=== PATIENT | female | born 1995 | race African-American/Black ===

== ENCOUNTER 2016-04-15 20:39 | Emergency (ER) | payer OTHER ==
[~2016-04-15] VITALS: Ht 157.5 cm; Wt 120.0 kg
[~2016-04-15 20:39] MED LIST: ACET-1256 PO; FERR1TAB13 PO; PSEU30TA20 PO
[2016-04-15 20:50] VITALS: TEMP 37.4
--- NOTE | 2016-04-15 21:29 | EMERGENCY ROOM VISIT NOTE ---
History Report prepared by Keri: Jennifer Romero Under the Supervision of: Dr. Sergo Sousa M.D. First contact with patient: 21:11 Chief Complaint: VAGINAL BLEEDING Stated Complaint: PELVIC PAIN History of Present Illness The patient is a 20 year old female who presents to the Emergency Room with complaints of constant vaginal bleeding that started 3 days ago. The patient states that her last normal menstrual period was 2 weeks ago. She states that she knows that this is not her menstrual period because she is not experiencing any abdominal cramping. The patient denies any abdominal pain. She is experiencing enough vaginal bleeding to have to change her pad twice a day. She states that she is also experiencing fatigue. The patient is not on control and she denies being sexually active recently. She also denies any chance of . Source of History: patient Onset: 3 days ago Position: other (vagina) Quality: other (vaginal bleeding) Timing: constant Associated Symptoms: + fatigue, No abdominal pain Review of Systems See HPI for pertinent positives & negatives. A total of 10 systems reviewed and were otherwise negative. Past Medical & Surgical Medical Problems: (1) Anemia (2) Iron deficiency anemia (3) Rectal bleed (4) Thalassemia Surgical Problems: (1) No significant past surgical history Family History Hypertension Social History Smoking Status: Never Smoker Alcohol Use: none Drug Use: none Marital Status: single Occupation Status: [employer] student Current/Historical Medications No Active Prescriptions or Reported Meds Allergies Coded Allergies: No Known Allergies (Verified , 04/15/16) Physical Exam Vital Signs Date Time Temp Pulse Resp B/P Pulse Ox O2 Delivery O2 Flow Rate FiO2 04/16/16 00:20 89 20 123/81 96 Room Air 04/15/16 23:10 100 20 107/88 100 Room Air 04/15/16 21:47 96 Room Air 04/15/16 20:50 37.4 111 20 122/79 100 Room Air Physical Exam GENERAL: Patient is a healthy-appearing well-nourished female. HEAD: Normocephalic atraumatic EYES: Ocular movements intact pupils equal and react to light OROPHARYNX mucous membranes are moist no exudates present no erythema or edema present NECK: Supple no nuchal rigidity CHEST: Good equal expansion LUNGS: Clear and equal to auscultation CARDIAC: Normal S1 and S2 ABDOMEN: Soft nontender no guarding BACK: No CVA tenderness EXTREMITIES: No pain upon palpation normal muscle strength in all groups no clubbing cyanosis or edema NEURO: Patient is following commands is answering questions appropriately. Alert and oriented x3 Cranial Nerves 2-12 grossly intact Medical Decision & Procedures ER Provider Diagnostic Interpretation: US results as stated below per my review and radiologist interpretation: EXAMINATION: PELVIC ULTRASOUND IMPRESSION: 1. 1.3 cm right ovarian follicular cyst. 2. Study is otherwise negative Electronically signed by: Renzo Richardson M.D. 04/15/2016 10:53 PM Dictated Date/Time: 04/15/2016 10:51 PM Laboratory Results 04/15/16 23:07 Red Blood Count 5.37, Mean Corpuscular Volume 63.5, Mean Corpuscular Hemoglobin 19.2, Mean Corpuscular Hemoglobin Concent 30.2, Mean Platelet Volume 9.5, Neutrophils (%) (Auto) 59.4, Lymphocytes (%) (Auto) 29.1, Monocytes (%) (Auto) 8.6, Eosinophils (%) (Auto) 2.6, Basophils (%) (Auto) 0.0, Neutrophils # (Auto) 4.17, Lymphocytes # (Auto) 2.04, Monocytes # (Auto) 0.60, Eosinophils # (Auto) 0.18, Basophils # (Auto) 0.00 04/15/16 23:07 Test 04/15/16 21:50 04/15/16 23:07 Urine Color ORANGE Urine Appearance TURBID (CLEAR) Urine pH 5.0 (4.5-7.5) Urine Specific [place] 1.030 (1.000-1.030) Urine Protein NEG (NEG) Urine Glucose (UA) NEG (NEG) Urine Ketones TRACE (NEG) Urine Occult Blood 1+ (NEG) Urine Nitrite POS (NEG) Urine Bilirubin NEG (NEG) Urine Urobilinogen NEG (NEG) Urine Leukocyte Esterase TRACE (NEG) Urine WBC (Auto) 1-5 /hpf (0-5) Urine RBC (Auto) 0-4 /hpf (0-4) Urine Hyaline Casts (Auto) 1-5 /lpf (0-5) Urine Epithelial Cells (Auto) >30 /lpf (0-5) Urine Bacteria (Auto) 1+ (NEG) Urine Crystals CALCIUM OXALATE (NONE Urine Test NEG (NEG) White Blood Count 7.01 K/uL (4.8-10.8) Red Blood Count 5.37 M/uL (4.2-5.4) Hemoglobin 10.3 g/dL (12.0-16.0) Hematocrit 34.1 % (37-47) Mean Corpuscular Volume 63.5 fL (80-100) Mean Corpuscular Hemoglobin 19.2 pg (25-34) Mean Corpuscular Hemoglobin Concent 30.2 g/dl (32-36) Platelet Count 388 K/uL (130-400) Mean Platelet Volume 9.5 fL (7.4-10.4) Neutrophils (%) (Auto) 59.4 % Lymphocytes (%) (Auto) 29.1 % Monocytes (%) (Auto) 8.6 % Eosinophils (%) (Auto) 2.6 % Basophils (%) (Auto) 0.0 % Neutrophils # (Auto) 4.17 K/uL (1.4-6.5) Lymphocytes # (Auto) 2.04 K/uL (1.2-3.4) Monocytes # (Auto) 0.60 K/uL (0.11-0.59) Eosinophils # (Auto) 0.18 K/uL (0-0.5) Basophils # (Auto) 0.00 K/uL (0-0.2) RDW Standard Deviation 43.7 fL (36.4-46.3) RDW Coefficient of Variation 18.9 % (11.5-14.5) Immature Granulocyte % (Auto) 0.3 % Immature Granulocyte # (Auto) 0.02 K/uL (0.00-0.02) Microcytosis PRESENT Prothrombin Time 11.9 SECONDS (9.0-12.0) Prothromb Time International Ratio 1.1 (0.9-1.1) Activated Partial Thromboplast Time 25.7 SECONDS (21.0-31.0) Partial Thromboplastin Ratio 1.0 Anion Gap 8.0 mmol/L (3-11) Est Creatinine Clear Calc Drug Dose 148.2 ml/min Estimated GFR () 134.2 Estimated GFR (Non- 115.8 BUN/Creatinine Ratio 13.0 (10-20) Calcium Level 9.2 mg/dl (8.5-10.1) Total Bilirubin 0.2 mg/dl (0.2-1) Aspartate Amino Transf (AST/SGOT) 15 U/L (15-37) Alanine Aminotransferase (ALT/SGPT) 26 U/L (12-78) Alkaline Phosphatase 81 U/L (45-117) Total Protein 8.1 gm/dl (6.4-8.2) Albumin 3.5 gm/dl (3.4-5.0) Globulin 4.6 gm/dl (2.5-4.0) Albumin/Globulin Ratio 0.8 (0.9-2) Human Chorionic Gonadotropin, Qual NEG (NEG) Labs reviewed by ED physician. ED Course 2112: Past medical records reviewed. The patient was evaluated in room A3. A complete history and physical examination was performed. 2358: I reassessed the patient. She is doing well. 0014: Upon reexamination the patient is doing well. I discussed results and treatment plan with the patient. She verbalizes agreement and understanding. The patient is ready for discharge. Medical Decision Differential diagnosis: Etiologies such as ectopic , dysfunction uterine bleeding, bleeding dyscrasia, trauma, infection, as well as others were entertained. This is a 20-year-old female who presents emergency department complaining of abnormal vaginal bleeding. The patient had her. Approximate 2 weeks ago and this is abnormal to have a period so soon after her last period. She is not on control medication. In addition she is not according to her laboratory work. The patient normally has a baseline anemia however she is much improved. I do believe that the patient can be safely discharged home for follow-up with OB. Patient was in agreement with the treatment plan. Impression Primary Impression: Dysfunctional uterine bleeding Scribe Attestation The scribe's documentation has been prepared under my direction and personally reviewed by me in its entirety. I confirm that the note above accurately reflects all work, treatment, procedures, and medical decision making performed by me. Departure Information Dispostion Home / Self-Care Prescriptions No Active Prescriptions or Reported Meds Referrals No Doctor, Assigned (PCP) Forms HOME CARE DOCUMENTATION FORM, IMPORTANT VISIT INFORMATION, WORK / SCHOOL INSTRUCTIONS Patient Instructions ED Bleed Irregular Vaginal, My [facility] Additional Instructions Follow up with Dr Mares's office You have been examined and treated today on an emergency basis only. This is not a substitute for, or an effort to provide, complete comprehensive medical care. It is impossible to recognize and treat all injuries or illnesses in a single emergency department visit. It is therefore important that you follow up closely with [facility] [address]. Call as soon as possible for an appointment. Thank you for your time and consideration. I look forward to speaking with you again soon. Please don't hesitate to call us if you have any questions.
[2016-04-15 21:46] VITALS: Ht 157.5 cm; Wt 120.0 kg
[2016-04-15 21:47] VITALS: O2SAT 96
--- NOTE | 2016-04-15 22:54 | DIAGNOSTIC IMAGING REPORT ---
EXAMINATION: PELVIC ULTRASOUND CLINICAL HISTORY: Pt c/o vag bleeding BLEEDING COMPARISON STUDY: None FINDINGS: The uterus measured 7.7 cm. The endometrial stripe measured 0.7 cm. The right ovary measured 3.1 cm with normal vascular flow. 1.3 cm follicular cyst The left ovary measured not visualized, possibly due to overlying bowel content. There is no ultrasonographic evidence of ovarian torsion. It should be noted that ovarian torsion can be present with normal Doppler ultrasonographic findings. There was no evidence of pathologic free pelvic fluid. IMPRESSION: 1. 1.3 cm right ovarian follicular cyst. 2. Study is otherwise negative Electronically signed by: Renzo Richardson M.D. 04/15/2016 10:53 PM Dictated Date/Time: 04/15/2016 10:51 PM
[2016-04-15 23:39] LABS: INR 1.1 (0.9-1.1); PROTHROMBIN TIME (PATIENT) 11.9 SECONDS (9.0-12.0)
[2016-04-15 23:41] LABS: EOS % 2.6 %; HEMATOCRIT 34.1 % (37-47); IG% 0.3 %; LYMPH % 29.1 %; LYMPH ABS # 2.04 K/uL (1.2-3.4); MEAN CELL VOLUME 63.5 fL (80-100); MEAN CORPUSCULAR HEMOGLOBIN 19.2 pg (25-34); MEAN CORPUSCULAR HGB CONC 30.2 g/dl (32-36); MEAN PLATELET VOLUME 9.5 fL (7.4-10.4); MONO % 8.6 %; NEUT % 59.4 %; PLATELET COUNT 388 K/uL (130-400); RED BLOOD COUNT 5.37 M/uL (4.2-5.4); WHITE BLOOD COUNT 7.01 K/uL (4.8-10.8)
[2016-04-15 23:50] LABS: CALCIUM 9.2 mg/dl (8.5-10.1); CREATININE 0.74 mg/dl (0.60-1.20); POTASSIUM 4.1 mmol/L (3.5-5.1)
[2016-04-15 23:52] LABS: ALB/GLOB RATIO 0.8 (0.9-2)
[2016-04-16] LABS: PREG INTERNAL NEGATIVE QC NEG CLEAR BACKGROUND; PREG INTERNAL POSITIVE QC POS CONTROL LINE
[2016-04-16 00:03] LABS: COMPLETE YES; MICROCYTOSIS PRESENT
[2016-04-16 00:20] VITALS: BP 123/81; PULSE 89; O2SAT 96
[2016-04-16 00:56] LABS: URINE APPEARANCE TURBID (CLEAR); URINE COLOR ORANGE; URINE EPITHELIAL CELL AUTO >30 /lpf (0-5); URINE NITRITE POS (NEG); UROBILINOGEN NEG (NEG)
[2016-04-16 00:57] LABS: MANUAL MICROSCOPIC REQUIRED? NO; REVIEW REQ? YES
[2016-04-16 00:58] LABS: URINE BILIRUBIN NEG (NEG)
== END 2016-04-16 00:25 | disposition home or self-care (01) ==
LOC: C.EDB 20:40 → C.EDA 04-16 00:25
DX: N93.8 Other specified abnormal uterine and vaginal bleeding (principal); D50.0 Iron deficiency anemia secondary to blood loss (chronic); Z82.49 Family history of ischemic heart disease and other diseases of the circulatory system; N83.201 Unspecified ovarian cyst, right side

== ENCOUNTER 2016-10-14 09:30 | Emergency (ER) | payer OTHER ==
[~2016-10-14] VITALS: Ht 157.5 cm; Wt 120.0 kg
[2016-10-14 09:30] VITALS: TEMP 36.6; Ht 157.5 cm; Wt 120.0 kg
[2016-10-14] MEDS ORDERED: FERR50TA3 PO (10:03)
--- NOTE | 2016-10-14 10:03 | EMERGENCY ROOM VISIT NOTE ---
History Report prepared by Keri: Jus Abernathy Under the Supervision of: Dr. Nicholas Marcelino M.D. First contact with patient: 09:51 Chief Complaint: FALL Stated Complaint: KNEE/ANKLE PAIN History of Present Illness The patient is a 21 year old female who presents to the Emergency Room with complaints of a sudden fall that occurred prior to arrival. She rates her pain as a 2/10 in severity. The patient describes her pain as a numbness that radiates from her right knee down her leg. The patient states that she was going to the grocery store earlier this morning. She states that she was walking outside in the parking lot and slipped forward hitting her right knee. She states that after falling, she started to experience numbness radiating from her right knee down to her leg and ankle pain. The patient admits that she was wearing flip flops during the incident. She reports that following the incident, the people surrounding her kept her on the floor and she has not put any weight on her lower extremity yet. The patient reports that she has not been able to wiggle her right toes due to the numbness. She states that she did not feel mild right hip pain until she started to lay here in the ED. The patient states that her last normal menstrual period was two weeks ago, and she denies any possible . She admits that she takes iron daily for her history of anemia. The patient denies hurting knee in the past, medication allergies, hitting head, pain in extremities, neck pain, back pain, LOC, lightheadedness prior to fall, fevers, chills, cough, nausea, and vomiting. Source of History: patient Onset: prior to arrival Position: other (global) Symptom Intensity: 2/10 Quality: numbness Timing: other (sudden) Associated Symptoms: + numbness, No fevers, No chills, No cough, No neck pain, No nausea, No vomiting, No back pain Review of Systems See HPI for pertinent positives and negatives. A total of ten systems were reviewed and were otherwise negative. Past Medical & Surgical Medical Problems: (1) Anemia (2) Iron deficiency anemia (3) Rectal bleed (4) Thalassemia Surgical Problems: (1) No significant past surgical history Family History Hypertension Social History Smoking Status: Never Smoker Alcohol Use: none Drug Use: none Marital Status: single Occupation Status: [employer] student Current/Historical Medications Scheduled Ferrous Sulfate (Iron (Ferrous Sulfate)), 1 TAB PO DAILY Allergies Coded Allergies: No Known Allergies (Verified , 10/14/16) Physical Exam Vital Signs Date Time Temp Pulse Resp B/P (MAP) Pulse Ox O2 Delivery O2 Flow Rate FiO2 10/14/16 12:21 95 17 146/98 96 10/14/16 11:24 98 17 136/95 97 Room Air 10/14/16 09:30 36.6 99 18 167/100 98 Room Air Physical Exam GENERAL: Obese, awake, alert, well-appearing, in no distress HENT: Normocephalic, atraumatic. Oropharynx unremarkable. EYES: Normal conjunctiva. Sclera non-icteric. NECK: Supple. No nuchal rigidity. FROM. No JVD. RESPIRATORY: Clear to auscultation. CARDIAC: Regular rate, normal rhythm. Extremities warm and well perfused. Pulses equal. ABDOMEN: Soft, non-distended. No tenderness to palpation. No rebound or guarding. No masses. RECTAL: Deferred. MUSCULOSKELETAL: Chest examination reveals no tenderness. The back is symmetrical on inspection without obvious abnormality. There is no CVA tenderness to palpation. No joint edema. LOWER EXTREMITIES: Calves are equal size bilaterally and non-tender. No edema, soft compartment. No discoloration. Diffuse pain in hip, knee, tibia, fibula, ankle, and foot with active range of motion. Minimal pain with passive ROM. Reports numbness but objective sensation intact. Reports unable to move toes but able to move toes downward with Babinski stimulation. NEURO: Normal sensorium. No sensory or motor deficits noted. SKIN: No rash or jaundice noted. Medical Decision & Procedures ER Provider Diagnostic Interpretation: Radiology results as stated below per my review and radiologist interpretation: RIGHT TIBIA/FIBULA 2 VIEWS ROUTINE CLINICAL HISTORY: Right lower leg pain status post trauma COMPARISON: None. DISCUSSION: No fractures or dislocations are visualized. IMPRESSION: No fractures identified. Electronically signed by: Joselito Medeiros M.D. 10/14/2016 11:20 AM Dictated Date/Time: 10/14/2016 11:20 AM RIGHT KNEE 3 VIEWS CLINICAL HISTORY: Right knee pain status post trauma COMPARISON: None. DISCUSSION: No fractures or dislocations are visualized. IMPRESSION: No fractures identified. Electronically signed by: Joselito Medeiros M.D. 10/14/2016 11:21 AM Dictated Date/Time: 10/14/2016 11:20 AM RIGHT HIP UNILATERAL 2 VIEWS CLINICAL HISTORY: Right hip pain status post trauma COMPARISON: None. DISCUSSION: No fractures or dislocations are visualized. IMPRESSION: No fractures identified. Electronically signed by: Joselito Medeiros M.D. 10/14/2016 11:20 AM Dictated Date/Time: 10/14/2016 11:19 AM RIGHT FOOT MIN 3 VIEWS ROUTINE CLINICAL HISTORY: Right foot pain status post trauma COMPARISON: None. DISCUSSION: No fractures or dislocations are visualized. IMPRESSION: No fractures identified. Electronically signed by: Joselito Medeiros M.D. 10/14/2016 11:22 AM Dictated Date/Time: 10/14/2016 11:21 AM RIGHT ANKLE MIN 3 VIEWS ROUTINE CLINICAL HISTORY: Right ankle pain status post trauma COMPARISON: None. DISCUSSION: No fractures or dislocations are visualized. IMPRESSION: No fractures identified. Electronically signed by: Joselito Medeiros M.D. 10/14/2016 11:19 AM Dictated Date/Time: 10/14/2016 11:19 AM Medications Administered Medications (Trade) Dose Ordered Sig/Wallace Route Start Time Stop Time Status Last Admin Dose Admin Ibuprofen (Motrin Tab) 800 mg STK-MED ONCE .ROUTE 10/14/16 10:13 10/14/16 10:14 DC 10/14/16 10:18 800 MG ED Course 0944: The patient was evaluated in room A11B. A complete history and physical exam was performed. 1013: Ordered Ibuprofen 800 mg PO. 1141: I reevaluated the patient and she is able to move her toes. Discussed results and discharge instructions: She verbalized understanding and agreement. The patient is ready for discharge. Medical Decision I reviewed the patient's past medical history, medications, and the nursing notes as described above. The patient's presentation and history were concerning for soft tissue injury, musculoskeletal strain, discoloration, and fracture. Patient presents emergency Department with complaint of right hip knee leg and ankle pain after mechanical fall when she slipped and fell onto her right knee per history of present illness. Patient is in no acute distress. Afebrile with stable vital signs. No significant swelling on exam however patient reports pain active range of motion but minimally on passive ROM. Initially reporting that she could not move her toes. X-rays of hip knee and tib-fib and ankle are negative for fracture. On reevaluation moves her toes without difficulty. Findings and plan for PCP follow-up d/w patient. Patient agreeable and d/c'd per discharge instructions. Medication Reconcilliation Current Medication List: was personally reviewed by me Blood Pressure Screening Patient's blood pressure: Elevated blood pressure Blood pressure disposition: Elevated BP felt to be situational Impression Primary Impression: Muscle strain Scribe Attestation The scribe's documentation has been prepared under my direction and personally reviewed by me in its entirety. I confirm that the note above accurately reflects all work, treatment, procedures, and medical decision making performed by me. Departure Information Dispostion Home / Self-Care Referrals [facility] (PCP) Forms HOME CARE DOCUMENTATION FORM, IMPORTANT VISIT INFORMATION Patient Instructions ED Strain Muscle Ext, My [facility] Additional Instructions Please follow up with your primary care physician in the next 1-3 days. Your exam and xrays did not show signs of an emergent condition at this time. Acetaminophen or Ibuprofen as needed for pain. Return to the emergency department for worsening symptoms as described in the accompanying instructions.
[2016-10-14] MEDS ORDERED: IBUPROFEN 600 MG TAB PO STA (10:04)
[2016-10-14] MEDS ORDERED: IBUPROFEN 800 MG TAB ONE (10:13)
--- NOTE | 2016-10-14 11:21 | DIAGNOSTIC IMAGING REPORT ---
RIGHT HIP UNILATERAL 2 VIEWS CLINICAL HISTORY: Right hip pain status post trauma COMPARISON: None. DISCUSSION: No fractures or dislocations are visualized. IMPRESSION: No fractures identified. Electronically signed by: Joselito Medeiros M.D. 10/14/2016 11:20 AM Dictated Date/Time: 10/14/2016 11:19 AM
--- NOTE | 2016-10-14 11:21 | DIAGNOSTIC IMAGING REPORT ---
RIGHT ANKLE MIN 3 VIEWS ROUTINE CLINICAL HISTORY: Right ankle pain status post trauma COMPARISON: None. DISCUSSION: No fractures or dislocations are visualized. IMPRESSION: No fractures identified. Electronically signed by: Joselito Medeiros M.D. 10/14/2016 11:19 AM Dictated Date/Time: 10/14/2016 11:19 AM
--- NOTE | 2016-10-14 11:22 | DIAGNOSTIC IMAGING REPORT ---
RIGHT KNEE 3 VIEWS CLINICAL HISTORY: Right knee pain status post trauma COMPARISON: None. DISCUSSION: No fractures or dislocations are visualized. IMPRESSION: No fractures identified. Electronically signed by: Joselito Medeiros M.D. 10/14/2016 11:21 AM Dictated Date/Time: 10/14/2016 11:20 AM
--- NOTE | 2016-10-14 11:22 | DIAGNOSTIC IMAGING REPORT ---
RIGHT TIBIA/FIBULA 2 VIEWS ROUTINE CLINICAL HISTORY: Right lower leg pain status post trauma COMPARISON: None. DISCUSSION: No fractures or dislocations are visualized. IMPRESSION: No fractures identified. Electronically signed by: Joselito Medeiros M.D. 10/14/2016 11:20 AM Dictated Date/Time: 10/14/2016 11:20 AM
--- NOTE | 2016-10-14 11:23 | DIAGNOSTIC IMAGING REPORT ---
RIGHT FOOT MIN 3 VIEWS ROUTINE CLINICAL HISTORY: Right foot pain status post trauma COMPARISON: None. DISCUSSION: No fractures or dislocations are visualized. IMPRESSION: No fractures identified. Electronically signed by: Joselito Medeiros M.D. 10/14/2016 11:22 AM Dictated Date/Time: 10/14/2016 11:21 AM
[2016-10-14 12:21] VITALS: BP 146/98; PULSE 95; O2SAT 96
== END 2016-10-14 12:20 | disposition home or self-care (01) ==
LOC: EDBD 09:30 → C.EDA 09:32
DX: S86.901A Unspecified injury of unspecified muscle(s) and tendon(s) at lower leg level, right leg, initial encounter (principal); R20.0 Anesthesia of skin; E66.9 Obesity, unspecified; D64.9 Anemia, unspecified; Z79.899 Other long term (current) drug therapy; Z87.19 Personal history of other diseases of the digestive system; Z82.49 Family history of ischemic heart disease and other diseases of the circulatory system; W01.0XXA Fall on same level from slipping, tripping and stumbling without subsequent striking against object, initial encounter

== ENCOUNTER 2017-02-02 14:54 | Emergency (ER) | payer OTHER ==
[~2017-02-02] VITALS: Ht 157.5 cm; Wt 123.3 kg
[2017-02-02 14:58] VITALS: TEMP 38.2; Ht 157.5 cm; Wt 123.3 kg
[2017-02-02] MEDS ORDERED: ACETAMINOPHEN 500 MG TAB PO STA (15:19)
--- NOTE | 2017-02-02 16:25 | EMERGENCY ROOM VISIT NOTE ---
History First contact with patient: 15:09 Chief Complaint: SORETHROAT Stated Complaint: SORE THROAT, HEAD HURTS History of Present Illness The patient is a 21 year old female who presents to the Emergency Room with complaints of sore throat, change in voice, headache and fever for the past 3 days. The patient reports that her roommate has been sick with similar symptoms. She has taken NyQuil and cough drops without relief. She last ibuprofen yesterday, and has not taken any additional medicines today for her symptoms. The patient denies any prior history of recurrent tonsillitis. She does report a minimal nonproductive cough, otherwise denies any chest pain, shortness of breath, urinary symptoms or diarrhea. The patient rates her discomfort an 8 out of 10. Review of Systems 10 system review was performed and was negative except for pertinent positives and negatives as indicated in history of present illness Past Medical/Surgical History Medical Problems: (1) Anemia (2) Iron deficiency anemia (3) Rectal bleed (4) Thalassemia Surgical Problems: (1) No significant past surgical history Family History Hypertension Social History Smoking Status: Never Smoker Alcohol Use: none Drug Use: none Marital Status: single Occupation Status: [employer] student Current/Historical Medications No Active Prescriptions or Reported Meds Physical Exam Vital Signs Date Time Temp Pulse Resp B/P (MAP) Pulse Ox O2 Delivery O2 Flow Rate FiO2 02/02/17 15:21 99 Room Air 02/02/17 14:58 38.2 115 18 138/94 98 Room Air 02/02/17 14:58 99 Room Air Physical Exam CONSTITUTIONAL: Healthy and well nourished. Alert and oriented X 3 with positive affect. Patient does not appear acutely ill or toxic. HEENT: Normocephalic, atraumatic. Pupils equal, round and reactive. Ears and nares are clear. OROPHARYNX: Patient has mild symmetric tonsillar hypertrophy and erythema without exudates. Uvula is midline. Negative trismus. Patient does have a change in voice, consistent with acute laryngitis. NECK: Full active range of motion without discomfort. LYMPHATICS: No posterior or anterior cervical chain adenopathy. RESPIRATORY: Clear to auscultation bilaterally with no wheezing, crackles, rhonchi or stridor. CARDIOVASCULAR: Regular rate and rhythm with no murmurs, rubs or gallops. MUSCULOSKELETAL: Full range of motion of all joints without discomfort. INTEGUMENTARY: No rash or other significant dermatologic conditions noted. NEUROLOGIC: No focal neurologic deficits noted. Medical Decision & Procedures Laboratory Results Rapid strep was performed and was negative. Strep cultures are pending. Medications Administered Medications (Trade) Dose Ordered Sig/Wallace Route Start Time Stop Time Status Last Admin Dose Admin Acetaminophen (Tylenol Tab) 1,000 mg NOW STAT PO 02/02/17 15:19 02/02/17 15:20 DC 02/02/17 15:53 1,000 MG ED Course Patient history and physical exam were performed. Nurse's notes were reviewed. Vital signs were also reviewed, showing a marginally elevated blood pressure 138/94. Oral temperature was 38.2C, and the patient is tachycardic with a rate of 115. O2 saturation is 98% on room air. The patient was administered Tylenol 1000 mg for pain and fever. Rapid strep was negative. Strep cultures were ordered and are pending. The patient was advised that this is likely a viral infection. Because she does have some change in voice, I also suggested mild laryngitis symptoms as well. The patient was provided handouts for self- care of her sore throat and laryngitis. She was encouraged to alternate ibuprofen and Tylenol as needed for pain and fever. She was instructed to remain well-hydrated. We will contact her with any positive strep culture results. The patient was instructed to follow-up with her PCP if symptoms are not improving within the next 10-14 days, at which time she may need to be checked for mono. The patient was happy with plan of care, voiced understanding of all discharge instructions, and rated her overall discomfort a 3 out of 10 at the conclusion of my exam. The patient was also instructed to have her PCP recheck her blood pressure as it was elevated in the emergency department. Medical Decision [place] Drug Monitoring Program Search Results: patient reviewed within database Blood Pressure Screening Patient's blood pressure: Elevated blood pressure Blood pressure disposition: Referred to PCP Impression Primary Impression: Acute viral pharyngitis Additional Impressions: Acute laryngitis Elevated blood pressure reading Departure Information Prescriptions No Active Prescriptions or Reported Meds Referrals [facility] (PCP) Patient Instructions My [facility] Problem Qualifiers
[2017-02-02 16:36] VITALS: BP 133/85; PULSE 110; O2SAT 98
== END 2017-02-02 16:37 | disposition home or self-care (01) ==
LOC: C.EDB 14:58 → C.EDC 16:37
DX: J02.9 Acute pharyngitis, unspecified (principal); J04.0 Acute laryngitis; R03.0 Elevated blood-pressure reading, without diagnosis of hypertension; Z82.49 Family history of ischemic heart disease and other diseases of the circulatory system

== ENCOUNTER 2017-05-10 14:35 | Emergency (ER) | payer OTHER ==
[~2017-05-10] VITALS: Ht 157.5 cm; Wt 126.8 kg
[2017-05-10 14:37] VITALS: TEMP 37.2; Ht 157.5 cm; Wt 126.8 kg
[2017-05-10 15:52] VITALS: BP 152/113; PULSE 86; O2SAT 100
--- NOTE | 2017-05-10 21:13 | EMERGENCY ROOM VISIT NOTE ---
History Report prepared by Keri: Yovani Casanova Under the Supervision of: Dr. Buster Lindsey M.D. First contact with patient: 14:42 Chief Complaint: MENTAL HEALTH EVALUATION Stated Complaint: NEED TO TALK TO A THERAPIST History of Present Illness The patient is a 21 year old female who presents to the Emergency Room with complaints of persistent depressive thoughts for two months. She came in on her own just so she can talk to somebody. She states that she has been feeling down for the past couple of months. She notes stressors with school and family, though denies any specific event that triggered these thoughts. She states that she may have to drop out of some classes. She denies any recent thoughts of self-harm. She notes a history self-harm while in high school. She states that she used to cut herself and she took some pills in an effort to commit suicide while she was in high school. She states that she had to be admitted during that time. She states that she wants to talk to someone in an effort to prevent her thoughts from getting worse. She states that she does not currently have a counselor. She denies any fevers, vomiting, or diarrhea. She denies any drug or alcohol use. She denies any chance of . Source of History: patient Onset: two months Position: other (global) Quality: other (depressive thoughts) Timing: other (persistent) Associated Symptoms: No fevers, No vomiting, No diarrhea Note: She denies any recent thoughts of self-harm. Review of Systems See HPI for pertinent positives & negatives. A total of 10 systems reviewed and were otherwise negative. Past Medical & Surgical Medical Problems: (1) Anemia (2) Iron deficiency anemia (3) Rectal bleed (4) Thalassemia Surgical Problems: (1) No significant past surgical history Family History Hypertension Social History Smoking Status: Never Smoker Alcohol Use: none Drug Use: none Marital Status: single Occupation Status: [employer] student Current/Historical Medications No Active Prescriptions or Reported Meds Allergies Coded Allergies: No Known Allergies (Verified , 01/03/17) Physical Exam Vital Signs Date Time Temp Pulse Resp B/P (MAP) Pulse Ox O2 Delivery O2 Flow Rate FiO2 05/10/17 15:52 86 152/113 100 05/10/17 14:37 37.2 85 17 153/105 97 Room Air Physical Exam Constitutional: Vital signs reviewed. Eyes: Pupils are equal round reactive to light. Conjunctiva are noninjected. ENT: Pharynx is clear without erythema or exudate. Mucous membranes are moist. Neck supple without meningeal signs. Respiratory: Clear to auscultation bilaterally. Breath sounds are equal bilaterally. Cardiovascular: Regular rate and rhythm. No rubs or gallops. GI: Soft, nondistended and nontender. Bowel sounds are present. Musculoskeletal: No peripheral edema. No lacerations to the wrists. Integumentary: No cyanosis. Neurological: The patient is awake and alert. No focal deficits. Psychiatric: Depressed affect, sometimes tearful. Medical Decision & Procedures ED Course 1443: The patient was evaluated in room A6. A complete history and physical exam was performed. 1511: The patient was evaluated by the mental health nurse case manager. The patient does not meet any criteria for inpatient psychiatric care nor does she desire to be an inpatient. She does not "believe" in medications and does not want to be referred to anyone who can prescribe them. The patient was referred to [facility] for outpatient therapy. The patient will be discharged home. Medical Decision This is a 21-year-old female presents for mental health evaluation. I did perform a limited focused review of portions of the patient's old chart on the electronic medical record. The patient has had no recent pertinent visits to this hospital. I did evaluate the patient as noted above. The patient has had increased depression over the past 2 months. She is having stress from school and issues with her family which she does not want to elaborate on. She denies any suicidal ideation. She came to the emergency department because she thought that she could just talk to somebody. She does not want to be admitted to the hospital and does not believe in medications. The mental health nurse case manager did speak to her and made referrals to [facility] for outpatient therapy. The patient was discharged in good condition. Medication Reconcilliation Current Medication List: was personally reviewed by me Blood Pressure Screening Patient's blood pressure: Elevated blood pressure Blood pressure disposition: Referred to PCP Impression Primary Impression: Mood disorder Scribe Attestation The scribe's documentation has been prepared under my direct and personally reviewed by me in its entirety. I confirm that the note above accurately reflects all work, treatment, procedures, and medical decision making performed by me. Departure Information Dispostion Home / Self-Care Prescriptions No Active Prescriptions or Reported Meds Referrals No Doctor, Assigned (PCP) Forms HOME CARE DOCUMENTATION FORM, IMPORTANT VISIT INFORMATION Patient Instructions ED Depression, My [facility] Additional Instructions You have been examined and treated today on an emergency basis only. This is not a substitute for, or an effort to provide, complete comprehensive medical care. It is impossible to recognize and treat all injuries or illnesses in a single emergency department visit. It is therefore important that you follow up closely with [facility]. Call as soon as possible for an appointment. Return for worsening symptoms or if you develop thoughts of hurting yourself or others or any other concerning symptoms. Your blood pressure was elevated today. Have it rechecked by your doctor.
== END 2017-05-10 15:54 | disposition home or self-care (01) ==
LOC: C.EDB 14:38 → C.EDA 15:54
DX: F39 Unspecified mood [affective] disorder (principal); Z82.49 Family history of ischemic heart disease and other diseases of the circulatory system

== ENCOUNTER 2017-07-02 19:23 | Emergency (ER) | payer OTHER ==
[~2017-07-02] VITALS: Ht 157.5 cm; Wt 132.7 kg
[2017-07-02 19:26] VITALS: TEMP 37.1; Ht 157.5 cm; Wt 132.7 kg
[2017-07-02] MEDS ORDERED: SODIUM CHLORIDE 0.9% 1000ML 1,000 ML IV STA (19:37)
[2017-07-02] MEDS ORDERED: SODIUM CHLORIDE 0.9% 500ML 500 ML IV STA (19:37)
[2017-07-02] MEDS ORDERED: AMOX875T PO (19:44)
[2017-07-02 20:13] LABS: BASO % 0.1 %; BASO ABS # 0.01 K/uL (0-0.2); EOS % 3.4 %; EOS ABS # 0.24 K/uL (0-0.5); HEMATOCRIT 33.5 % (37-47); HEMOGLOBIN 10.1 g/dL (12.0-16.0); IG# 0.02 K/uL (0.00-0.02); LYMPH % 30.2 %; LYMPH ABS # 2.12 K/uL (1.2-3.4); MEAN CELL VOLUME 67.4 fL (80-100); MEAN CORPUSCULAR HEMOGLOBIN 20.3 pg (25-34); MEAN CORPUSCULAR HGB CONC 30.1 g/dl (32-36); MEAN PLATELET VOLUME 8.9 fL (7.4-10.4); MONO % 8.8 %; MONO ABS # 0.62 K/uL (0.11-0.59); NEUT % 57.2 %; NEUT ABS # 4.01 K/uL (1.4-6.5); PLATELET COUNT 274 K/uL (130-400); RED CELL DISTRIBUTION WIDTH CV 18.2 % (11.5-14.5); RED CELL DISTRIBUTION WIDTH SD 43.9 fL (36.4-46.3); WHITE BLOOD COUNT 7.02 K/uL (4.8-10.8)
[2017-07-02 20:33] LABS: ALBUMIN 1.2 gm/dl (3.4-5.0); ALT/SGPT 23 U/L (12-78); AST/SGOT 17 U/L (15-37); BLOOD UREA NITROGEN 8 mg/dl (7-18); CALCIUM 7.7 mg/dl (8.5-10.1); CARBON DIOXIDE 28 mmol/L (21-32); CREATININE 0.44 mg/dl (0.60-1.20); GLUCOSE 97 mg/dl (70-99); LIPASE 99 U/L (73-393); POTASSIUM 3.5 mmol/L (3.5-5.1); SODIUM 142 mmol/L (136-145)
[2017-07-02 20:36] LABS: ALKALINE PHOSPHATASE 91 U/L (45-117); TOTAL PROTEIN 5.7 gm/dl (6.4-8.2)
--- NOTE | 2017-07-02 20:42 | EMERGENCY ROOM VISIT NOTE ---
History Report prepared by Keri: Lin Lam Under the Supervision of: Dr. Manju Maxwell M.D. First contact with patient: 19:31 Chief Complaint: OTHER COMPLAINT Stated Complaint: BAD REACTION TO ANTIBIOTICS History of Present Illness The patient is a 22 year old female who presents to the Emergency Room with complaints of a worsening diarrhea starting a week ago. The patient states that she was started a week ago on Amoxicillin for an ear infection. She states that since she started taking it, she has had diarrhea. She states that no matter what she eats it doesn't take long to move through her. She reports that she called [facility] and they told her that she should keep taking it. The patient states that today she went to the restroom and had blood in her stool. She states that it is still diarrhea and is a sheet of blood over top of it. She reports that it is there when she wipes as well. She notes that it happened twice today. The patient complains of nausea, vomiting, fatigue, and slight fevers. The patient denies hematemesis, urinary symptoms, and the use of blood thinners. She notes that she has been spotting vaginally, but states that it is not time for her period. Source of History: patient Onset: a week ago Position: other (global) Quality: other (diarrhea) Timing: worsening Associated Symptoms: + fevers (slight), + nausea, + vomiting, + hematochezia , + fatigue, No urinary symptoms Note: The patient denies hematemesis. Review of Systems See HPI for pertinent positives & negatives. A total of 10 systems reviewed and were otherwise negative. Past Medical & Surgical Medical Problems: (1) Anemia (2) Iron deficiency anemia (3) Rectal bleed (4) Thalassemia Surgical Problems: (1) No significant past surgical history Family History Hypertension Social History Smoking Status: Never Smoker Alcohol Use: none Drug Use: none Marital Status: single Occupation Status: [employer] student Current/Historical Medications Scheduled Amoxicillin & Pot Clavulanate (Augmentin 875-125 mg), 1 TAB PO BID Vancomycin Hcl (Vancomycin), 1 TAB PO QID Allergies Coded Allergies: No Known Allergies (Verified , 07/02/17) Physical Exam Vital Signs Date Time Temp Pulse Resp B/P (MAP) Pulse Ox O2 Delivery O2 Flow Rate FiO2 07/02/17 22:57 96 18 135/88 100 07/02/17 21:07 90 18 120/97 100 Room Air 07/02/17 19:26 37.1 99 18 142/99 100 Room Air Physical Exam Vital signs reviewed. General: Well-appearing, morbidly obese, in no significant distress. HEENT: No scleral icterus, PERRLA, neck supple. Atraumatic. Cardiovascular: Regular rate and rhythm, no extra sounds. Pulmonary: Clear to auscultation bilaterally, normal work of breathing. Abdomen: Soft, left lower to suprapubic abdominal tenderness, no rebound, no guarding, nondistended, positive bowel sounds. Musculoskeletal: Atraumatic, no peripheral edema. Neurologic: Patient awake alert and oriented x 3 Skin: Warm, dry, no rash Medical Decision & Procedures Laboratory Results 07/02/17 20:02 Red Blood Count 4.97, Mean Corpuscular Volume 67.4, Mean Corpuscular Hemoglobin 20.3, Mean Corpuscular Hemoglobin Concent 30.1, Mean Platelet Volume 8.9, Neutrophils (%) (Auto) 57.2, Lymphocytes (%) (Auto) 30.2, Monocytes (%) (Auto) 8.8, Eosinophils (%) (Auto) 3.4, Basophils (%) (Auto) 0.1, Neutrophils # (Auto) 4.01, Lymphocytes # (Auto) 2.12, Monocytes # (Auto) 0.62, Eosinophils # (Auto) 0.24, Basophils # (Auto) 0.01 07/02/17 20:02 Test 07/02/17 20:02 07/02/17 20:22 07/02/17 21:24 White Blood Count 7.02 K/uL (4.8-10.8) Red Blood Count 4.97 M/uL (4.2-5.4) Hemoglobin 10.1 g/dL (12.0-16.0) Hematocrit 33.5 % (37-47) Mean Corpuscular Volume 67.4 fL (80-100) Mean Corpuscular Hemoglobin 20.3 pg (25-34) Mean Corpuscular Hemoglobin Concent 30.1 g/dl (32-36) Platelet Count 274 K/uL (130-400) Mean Platelet Volume 8.9 fL (7.4-10.4) Neutrophils (%) (Auto) 57.2 % Lymphocytes (%) (Auto) 30.2 % Monocytes (%) (Auto) 8.8 % Eosinophils (%) (Auto) 3.4 % Basophils (%) (Auto) 0.1 % Neutrophils # (Auto) 4.01 K/uL (1.4-6.5) Lymphocytes # (Auto) 2.12 K/uL (1.2-3.4) Monocytes # (Auto) 0.62 K/uL (0.11-0.59) Eosinophils # (Auto) 0.24 K/uL (0-0.5) Basophils # (Auto) 0.01 K/uL (0-0.2) RDW Standard Deviation 43.9 fL (36.4-46.3) RDW Coefficient of Variation 18.2 % (11.5-14.5) Immature Granulocyte % (Auto) 0.3 % Immature Granulocyte # (Auto) 0.02 K/uL (0.00-0.02) Microcytosis PRESENT Anion Gap 6.0 mmol/L (3-11) Est Creatinine Clear Calc Drug Dose 261.0 ml/min Estimated GFR () > 150.0 Estimated GFR (Non- 142.3 BUN/Creatinine Ratio 18.7 (10-20) Calcium Level 7.7 mg/dl (8.5-10.1) Phosphorus Level 3.2 mg/dl (2.5-4.9) Magnesium Level 1.6 mg/dl (1.8-2.4) Total Bilirubin 0.1 mg/dl (0.2-1) Direct Bilirubin < 0.1 mg/dl (0-0.2) Aspartate Amino Transf (AST/SGOT) 17 U/L (15-37) Alanine Aminotransferase (ALT/SGPT) 23 U/L (12-78) Alkaline Phosphatase 91 U/L (45-117) Total Protein 5.7 gm/dl (6.4-8.2) Albumin 1.2 gm/dl (3.4-5.0) Lipase 99 U/L (73-393) Thyroid Stimulating Hormone (TSH) 2.400 uIu/ml (0.300-4.500) Urine Color YELLOW Urine Appearance CLOUDY (CLEAR) Urine pH 6.5 (4.5-7.5) Urine Specific [place] 1.030 (1.000-1.030) Urine Protein 2+ (NEG) Urine Glucose (UA) NEG (NEG) Urine Ketones NEG (NEG) Urine Occult Blood 3+ (NEG) Urine Nitrite NEG (NEG) Urine Bilirubin NEG (NEG) Urine Urobilinogen NEG (NEG) Urine Leukocyte Esterase NEG (NEG) Urine WBC (Auto) 5-10 /hpf (0-5) Urine RBC (Auto) 10-30 /hpf (0-4) Urine Hyaline Casts (Auto) 5-10 /lpf (0-5) Urine Epithelial Cells (Auto) >30 /lpf (0-5) Urine Bacteria (Auto) 1+ (NEG) Stool Occult Blood NEGATIVE (NEGATIVE) Ionized Calcium 1.07 mmol/l (1.12-1.32) Parathyroid Hormone (Intact) 91.8 pg/mL (18.4-80.1) Laboratory results per my review. Medications Administered Medications (Trade) Dose Ordered Sig/Wallace Route Start Time Stop Time Status Last Admin Dose Admin Sodium Chloride 1,000 ml @ 200 mls/hr Q5H STAT IV 07/02/17 19:37 07/03/17 00:27 DC 07/02/17 21:04 200 MLS/HR Sodium Chloride 500 ml @ 999 mls/hr Q31M STAT IV 07/02/17 19:37 07/02/17 20:07 DC 07/02/17 20:30 999 MLS/HR Magnesium Oxide (Mag-Ox Tab) 400 mg NOW STAT PO 07/02/17 20:59 07/02/17 21:00 DC 07/02/17 21:06 400 MG Vancomycin HCl (Vancomycin Oral Soln) 125 mg NOW STAT PO 07/02/17 22:04 07/02/17 22:05 DC 07/02/17 22:48 125 MG Raspberry (Raspberry Syrup 5ml Cup) 5 ml NOW STAT PO 07/02/17 22:10 07/02/17 22:11 DC 07/02/17 22:48 5 ML ED Course 1934: Past medical records reviewed. The patient was evaluated in room A10. A complete history and physical examination was performed. 1936: Ordered NSS 500 ml @ 999 mls/hr IV, NSS 1000 ml @ 200 mls/hr IV. 2058: Ordered Magnesium Oxide 400 mg PO. 2158: Ordered Vancomycin HCl 125 mg PO. 2203: Ordered Vancomycin HCl 125 mg PO. 2210: Ordered Raspberry 5 ml PO. 2212: Upon reevaluation, the patient appeared to have improvement of her symptoms. I discussed findings with her. She verbalized agreement of the treatment plan. The patient was discharged home. Medical Decision Differential diagnosis: Etiologies such as diverticulosis, AVM, coagulopathy, colitis, inflammatory bowel disease, malignancy, Marielos-Moreno tear, esophagitis, peptic ulcer disease , variceal bleed, gastritis, epistaxis, fissure, hemorrhoids, as well as others were entertained. This patient was evaluated and appeared to be in no significant distress. Physical examination is somewhat limited due to IV access was obtained and patient was hydrated with normal saline solution. Stool sample was obtained and sent to the lab. Patient has tested positive for C. difficile. This is not surprising as she has been on amoxicillin 875 mg twice daily for the last week. Patient was advised to stop the amoxicillin. She was prescribed oral vancomycin 125 mg 4 times daily 14 days. She was given her first dose in the emergency department. Patient's laboratory work reveals a low calcium, low magnesium, normal phosphate level and elevated PTH. Patient was given a copy of her laboratory work and will follow up with [facility] regarding the C. difficile colitis and possible underlying parathyroid issues. Patient was discharged to care of her roommate. She will return to the ED for worsening of symptoms or any medical concerns. Medication Reconcilliation Current Medication List: was personally reviewed by me Blood Pressure Screening Patient's blood pressure: Elevated blood pressure Blood pressure disposition: Elevated BP felt to be situational Impression Primary Impression: Clostridium difficile colitis Additional Impressions: Elevated parathyroid hormone Hypocalcemia Scribe Attestation The scribe's documentation has been prepared under my direction and personally reviewed by me in its entirety. I confirm that the note above accurately reflects all work, treatment, procedures, and medical decision making performed by me. Departure Information Dispostion Home / Self-Care Prescriptions Vancomycin Hcl (Vancomycin) 125 Mg Cap 1 TAB PO QID for 14 Days, #56 TAB Prov: Manju Maxwell M.D. 07/02/17 Referrals No Doctor, Assigned (PCP) Forms HOME CARE DOCUMENTATION FORM, IMPORTANT VISIT INFORMATION, WORK / SCHOOL INSTRUCTIONS Patient Instructions My [facility] Additional Instructions Diagnosis: C. difficile colitis Vancomycin 125 mg by mouth 4 times daily for 14 days. Please drink plenty of clear fluids. Stop the amoxicillin that was prescribed. Please see the handout attached. Follow-up with [facility] this week for reevaluation if symptoms persist. Return to the ER for worsening of symptoms or any medical concerns. Problem Qualifiers
[2017-07-02] MEDS ORDERED: MAGNESIUM OXIDE 400 MG TAB PO STA (20:59)
[2017-07-02 21:53] LABS: PHOSPHORUS 3.2 mg/dl (2.5-4.9)
[2017-07-02] MEDS ORDERED: VANCOMYCIN HCL 250 MG/5 ML SOLN PO STA (21:59)
[2017-07-02] MEDS ORDERED: VANCOMYCIN HCL 125 MG/2.5ML SOLN PO STA (22:04)
[2017-07-02] MEDS ORDERED: VANC5CAP PO (22:07)
[2017-07-02] MEDS ORDERED: RASPBERRY SYRUP 5 ML UDP PO STA (22:10)
[2017-07-02 22:57] VITALS: BP 135/88; PULSE 96; O2SAT 100
--- NOTE | 2017-07-03 13:30 | Pharmacy Progress Note ---
ED Pharmacist Progress Note Date of Service: July 03, 2017. Received message this AM that Michael from [facility] called regarding prescription for vancomycin capsules which would require a prior authorization. Called pharmacy and asked malone feliciano $1700 for capsules, asked if she had the First-Vancomycin product which is usually cheaper. She said that she would have to order either in. Called [facility] which had first-vancomycin in stock, malone feliciano ~$100 dollars. Other option to switch to metronidazole. Discussed case with Dr. Vasquez, who felt she could be switched to metronidazole 500 mg TID x 14 days. Called and cancelled vancomycin prescription and called in metronidazole 500 mg TID x 14 days to [facility]. Patient had just come to store and may be calling.[facility] was going to contact the patient.
== END 2017-07-02 22:58 | disposition home or self-care (01) ==
LOC: C.EDB 19:24 → C.EDA 22:58
DX: A04.72 Enterocolitis due to Clostridium difficile, not specified as recurrent (principal); E83.51 Hypocalcemia; E21.5 Disorder of parathyroid gland, unspecified; F64.9 Gender identity disorder, unspecified

== ENCOUNTER 2017-10-23 07:46 | Emergency (ER) | payer OTHER ==
[~2017-10-23] VITALS: Ht 157.5 cm; Wt 142.0 kg
[2017-10-23 07:48] VITALS: TEMP 36.8; Ht 157.5 cm; Wt 142.0 kg
[2017-10-23] MEDS ORDERED: PROB1TAB16 PO (08:05)
[2017-10-23] MEDS ORDERED: MULT-897 PO (08:05)
--- NOTE | 2017-10-23 10:37 | DIAGNOSTIC IMAGING REPORT ---
LEFT LOWER EXTREMITY VENOUS DOPPLER HISTORY: Left leg pain. COMPARISON STUDY: Venous Doppler 07/31/2017. FINDINGS: There is normal compressibility, flow, and augmentation within the left lower extremity deep venous system. Focal imaging of the proximal medial calf demonstrates multiple patent varicosities. IMPRESSION: No DVT within the left lower extremity. Electronically signed by: Huber Norris M.D. 10/23/2017 10:36 AM Dictated Date/Time: 10/23/2017 10:35 AM
[2017-10-23 11:43] VITALS: BP 157/119; PULSE 99; O2SAT 98
--- NOTE | 2017-10-23 17:54 | EMERGENCY ROOM VISIT NOTE ---
History First contact with patient: 07:52 Chief Complaint: CALF PAIN Stated Complaint: LEFT CALF IS SWOLLEN TO TOUCH & SENSITIVE History of Present Illness The patient is a 22 year old female who presents to the Emergency Room with complaints of a painful and swollen left calf. Patient has noticed swelling for the past month. She reports history of frequent swelling of her lower extremities. The patient has a history of thalassemia, but denies any other coagulopathies or history of DVT. She also denies any recent trauma to the leg , and rates her discomfort a 7 out of 10. Review of Systems 10 system review was performed and was negative except for pertinent positives and negatives as indicated in history of present illness Past Medical/Surgical History Medical Problems: (1) Anemia (2) Iron deficiency anemia (3) Rectal bleed (4) Thalassemia Surgical Problems: (1) No significant past surgical history Family History Hypertension Social History Smoking Status: Never Smoker Alcohol Use: none Drug Use: none Marital Status: single Occupation Status: [employer] student Current/Historical Medications Scheduled Multiple Vitamin (One Daily), 1 TAB PO DAILY Probiotic Product (Probiotic), 2 TAB PO DAILY Physical Exam Vital Signs Date Time Temp Pulse Resp B/P (MAP) Pulse Ox O2 Delivery O2 Flow Rate FiO2 10/23/17 11:43 99 18 157/119 98 Room Air 10/23/17 10:38 96 18 165/112 99 Room Air 10/23/17 09:03 89 18 154/107 99 Room Air 10/23/17 07:48 36.8 96 18 178/123 97 Room Air Physical Exam CONSTITUTIONAL: Morbidly obese female, alert and oriented X 3 with positive affect. Patient does not appear in any acute distress. HEENT: Normocephalic, atraumatic. Pupils equal, round and reactive. NECK: Full active range of motion without discomfort. RESPIRATORY: Clear to auscultation bilaterally with no wheezing, crackles, rhonchi or stridor. CARDIOVASCULAR: Regular rate and rhythm with no murmurs, rubs or gallops. MUSCULOSKELETAL: Examination shows generalized tenderness to palpation of the left calf. Lower extremities are symmetric in size without obvious pretibial pitting edema, erythema or ecchymosis. Patient ambulates without antalgic gait. Pedal pulses are intact. INTEGUMENTARY: No rash or other significant dermatologic conditions noted. NEUROLOGIC: No focal neurologic deficits noted. Lower extremities are sensory intact. Medical Decision & Procedures ER Provider Diagnostic Interpretation: Venous ultrasound of the left lower extremity is negative for DVT. Radiologist report is as follows: LEFT LOWER EXTREMITY VENOUS DOPPLER HISTORY: Left leg pain. COMPARISON STUDY: Venous Doppler 07/31/2017. FINDINGS: There is normal compressibility, flow, and augmentation within the left lower extremity deep venous system. Focal imaging of the proximal medial calf demonstrates multiple patent varicosities. IMPRESSION: No DVT within the left lower extremity. ED Course Patient history and physical exam were performed. Nurse's notes were reviewed. Vital signs were reviewed, showing a blood pressure 178/123. The patient refused any analgesics. Venous ultrasound of the left lower extremity is normal. The patient was encouraged to elevate her legs for swelling. She may also try compression stockings. The patient was instructed to follow-up with her PCP for further management. She was encouraged to take ibuprofen and Tylenol as needed for pain. I also encouraged to have her PCP recheck her blood pressure as it was significantly elevated in the emergency department. The patient was happy with plan of care, and voiced understanding of all discharge instructions, rating her discomfort a 4 out of 10 at the conclusion of my exam. Medical Decision Venous ultrasound does not show any evidence for deep vein thrombosis. She has good palpable pulses, therefore I do not suspect peripheral vascular disease. She does have bilateral lower extremity edema, likely secondary to body habitus. I do not suspect CHF or other acute cardiopulmonary etiologies. I do feel that the patient is stable for outpatient follow-up. Impression Primary Impression: Edema of left lower extremity Additional Impressions: Morbid obesity with BMI of 50.0-59.9, adult Elevated blood pressure reading Departure Information Referrals [facility] (PCP) Patient Instructions My [facility] Problem Qualifiers
== END 2017-10-23 12:10 | disposition home or self-care (01) ==
LOC: C.EDB 07:48
DX: R60.0 Localized edema (principal); E66.01 Morbid (severe) obesity due to excess calories; R03.0 Elevated blood-pressure reading, without diagnosis of hypertension; D64.9 Anemia, unspecified